=== PATIENT | female | born 2000 | race Caucasian/White ===

== ENCOUNTER 2019-07-14 22:47 | Inpatient (IN) | payer SELFPAY ==
[2019-07-14 23:18] LABS: APPEARANCE,URINE CLEAR; BILIRUBIN,URINE NEGATIVE (NEGATIVE); COLOR,URINE YELLOW; GLUCOSE, URINE NEGATIVE (NEGATIVE); KETONES,URINE NEGATIVE (NEGATIVE); LEUKOCYTE ESTERASE,URINE NEGATIVE (NEGATIVE); NITRITE,URINE NEGATIVE (NEGATIVE); PROTEIN,URINE NEGATIVE (NEGATIVE); URINE SPECIFIC GRAVITY 1.014; UROBILINOGEN,URINE NEGATIVE mg/dL (<2.0)
[2019-07-14 23:32] LABS: URINE AMPHETAMINES SCREEN NEGATIVE; URINE BARBITURATES SCREEN NEGATIVE; URINE BENZODIAZEPINES SCREEN NEGATIVE; URINE COCAINE SCREEN NEGATIVE; URINE METHADONE SCREEN NEGATIVE; URINE PHENCYCLIDINE SCREEN NEGATIVE
[2019-07-14 23:52] LABS: URINE MARIJUANA (THC) SCREEN UNCONFIRMED POSITIVE
[2019-07-15] MEDS ORDERED: PENICILLIN G-K 5 MILLION UNIT VIAL ONE ×3 (00:37→09:18)
[2019-07-15] MEDS ORDERED: RINGERS SOLUTION,LACTATED 1,000 ML IV PRN (01:08)
[2019-07-15] MEDS ORDERED: PENICILLIN G POTASSIUM 5,000,000 UNIT in DEXTROSE 5%-WATER 100 ML IV ONE (01:08)
[2019-07-15] MEDS ORDERED: NALBUPHINE HCL INJ 10 MG/1 ML AMPULE INJ ONE (01:09)
[2019-07-15] MEDS ORDERED: NALBUPHINE HCL INJ 10 MG/1 ML AMPULE ONE (01:21)
[2019-07-15 02:23] LABS: ABSOLUTE LYMPHOCYTES (AUTO) 0.7 10^3/uL (0.5-4.7); ABSOLUTE MONOCYTES (AUTO) 0.5 10^3/uL (0.1-1.4); ABSOLUTE NEUT (AUTO) 8.4 10^3/uL (1.7-8.2); BASOPHILS % (AUTO) 0.2 % (0-2); HEMATOCRIT 32.9 % (36.0-47.0); HEMOGLOBIN 10.6 g/dL (12.0-15.5); LYMPHOCYTES % (AUTO) 7.5 % (13-45); MEAN CORPUSCULAR HEMOGLOBIN 24.5 pg (27.0-33.4); MEAN CORPUSCULAR HGB CONC 32.2 g/dL (32.0-36.0); MEAN CORPUSCULAR VOLUME 76 fl (80-97); PLATELET COUNT 264 10^3/uL (150-450); RED BLOOD COUNT 4.31 10^6/uL (3.72-5.28); RED CELL DISTRIBUTION WIDTH 24.3 % (11.5-14.0); SEGMENTED NEUTROPHILS % (AUTO) 87.3 % (42-78); TOTAL CELLS COUNTED % (AUTO) 100 %; WHITE BLOOD COUNT 9.6 10^3/uL (4.0-10.5)
[2019-07-15 02:39] LABS: HYPOCHROMASIA SLIGHT; POLYCHROMASIA SLIGHT; TOXIC GRANULATION SLIGHT
[2019-07-15 02:40] LABS: ANISOCYTOSIS 3+; OVALOCYTES SLIGHT; PLATELET COMMENT ADEQUATE; POIKILOCYTOSIS SLIGHT; SCHISTOCYTES SLIGHT; SPHEROCYTES SLIGHT; TEAR DROP CELLS SLIGHT
[2019-07-15] MEDS ORDERED: LIDOCAINE 1% INJ-PF (10 MG/ML) 30 ML SDV ONE (04:04)
[2019-07-15] MEDS ORDERED: MISOPROSTOL 0.2 MG TABLET ONE (04:04)
[2019-07-15] MEDS ORDERED: OXYTOCIN/NORMAL SALINE 20 UNIT/1,000 ML RTUINJ ONE (04:04)
[2019-07-15] MEDS ORDERED: OXYTOCIN 10 UNIT/ML VIAL ONE (04:04)
[2019-07-15] MEDS ORDERED: FENTANYL/BUPIVACAINE/NS/PF 300 MCG/150 ML RTUINJ EPI ONE (04:05)
[2019-07-15] MEDS ORDERED: EPHEDRINE SULFATE INJ 50 MG/1 ML AMPULE ONE (04:05)
[2019-07-15] MEDS ORDERED: BUPIVACAINE HCL 0.25 % INJ/PF (2.5 MG/1 ML) 30 ML VIAL ONE (04:05)
[2019-07-15] MEDS ORDERED: FENTANYL CITRATE INJ/PF 100 MCG/2 ML AMPUL ONE (04:06)
[2019-07-15] MEDS: PENICILLIN G POTASSIUM 2,500,000 UNIT in DEXTROSE 5%-WATER 50 ML IV SCH ×2 (05:07→09:25)
--- NOTE | 2019-07-15 06:42 | Admission Physical ---
Datetime Report Generated by CPN: 07/15/2019 06:42 CURRENT ADMISSION Chief Complaint: Uterine Contractions Admit Impression : Term, Intrauterine ; Active Labor Admit Plan: Admit to Unit; Initiate Labor Protocol ALLERGIES Medication Allergies: Yes Medication Allergies: guaifenesin (07/14/2019); phenylephrine (07/14/2019); dextromethorphan (07/14/2019) Latex: No Latex Allergies OBSTETRICAL HISTORY EDC: 07/18/2019 00:00 : 1 Para: 0 Term: 0 : 0 SAB: 0 IAB: 0 Ectopic: 0 Livin Cesareans: 0 VBACs: 0 Multiple Births: 0 Current Procedures: Ultrasound; NST Obstetrical History Comments: G1- current SEE RECORDS Alcohol: No Marijuana : No Cocaine: No Other Illicit Drugs: No Cigarettes: Current Everyday Smoker. [id number] MEDICAL HISTORY Medical History Comments: anemia, spina bifida occulta INFECTIOUS HISTORY Genital Herpes: Yes Infectious History Comments: HSV- reports last outbreak in october PHYSICAL EXAM General: Normal HEENT: Normal Neurologic: Normal Thyroid: Normal Heart: Normal Lungs: Normal Breast: Normal Back: Normal Abdomen: Normal Genitourinary Exam: Normal Extremities: Normal DTRs: Normal Pelvic Type: Adequate Vital Signs: Reviewed VAGINAL EXAM Dilatation: 8 Effacement: 90 Station: -2 Contraction Comments: Contractions Q 3-4 minutes MEMBRANES Pooling: Negative Membranes: Intact FETUS A EGA: 39.4 Monitoring: External US FHR- Baseline: 140 Variability: Moderate 6-25bpm Accelerations: 10X10 Decelerations: None FHR Category: Category I Presentation: Vertex Admit Comment: G1 at 39.4 wks EGA in active labor -Admit to LDR -NPO and IVFs -GBS unknown-PCN ordered -Hx HSV-no lesions on valtrex -Desires epidural when needed -Anticipate PLANS FOR LABOR AND DELIVERY Labor and Delivery: None Pain Management: Medications Feeding Preference: Breast Benefit of Breast Feed Discussed: Yes INFORMED CONSENT Informed Consent Obtained: Vaginal Delivery; Section Delivery; Vacuum/Forceps Assist; Risks, Benefits and Alternatives Discussed Signature: with User ID: [email or web address] : with User ID: [email or web address]
[2019-07-15] MEDS ORDERED: DIBUCAINE 1% OINTMENT 56 GM TP PRN (11:39)
[2019-07-15] MEDS ORDERED: PROMETHAZINE HCL 25 MG TABLET PO PRN (11:39)
[2019-07-15] MEDS ORDERED: MAGNESIUM HYDROXIDE SUSP 30 ML UDCUP PO PRN (11:39)
[2019-07-15] MEDS ORDERED: OXYTOCIN/NORMAL SALINE 20 UNIT/1,000 ML RTUINJ IV PRN (11:39)
[2019-07-15] MEDS ORDERED: MEASLES,MUMPS&RUBELLA VACC/PF 0.5 ML VIAL SUBCUT PRN (11:39)
[2019-07-15] MEDS ORDERED: GLYCERIN/WITCH HAZEL LEAF 1 EACH MED..WIPE TP PRN (11:39)
[2019-07-15] MEDS ORDERED: NA PHOS,M-B/NA PHOS,DI-BA (ADULT) 133 ML ENEMA PR PRN (11:39)
[2019-07-15] MEDS ORDERED: PSEUDOEPHEDRINE HCL 30 MG TABLET PO PRN (11:39)
[2019-07-15] MEDS ORDERED: DIPHENHYDRAMINE HCL 25 MG CAPSULE PO PRN (11:39)
[2019-07-15] MEDS ORDERED: PROMETHAZINE HCL 25 MG SUPP.RECT PR PRN (11:39)
[2019-07-15] MEDS ORDERED: PROMETHAZINE HCL INJ 25 MG/1 ML VIAL IV PRN (11:39)
[2019-07-15] MEDS ORDERED: ACETAMINOPHEN 325 MG TABLET PO PRN (11:39)
[2019-07-15] MEDS ORDERED: DIPH/PERTUSS(ACELL)/TETANUS VAC/PF 0.5 ML SYR (>=10YO) IM PRN (11:39)
[2019-07-15] MEDS ORDERED: BENZOCAINE/MENTHOL AEROSOL SPRAY 56 ML TOP PRN (11:39)
--- NOTE | 2019-07-15 12:27 | Warning Signs in Babies ---
VOD Warning Signs Datetime Report Generated by [facility]: 07/15/2019 12:27 VOD#608 -Warning Signs in Babies: Needs to be viewed. (07/14/2019 22:59:Gloria Henderson RN)
[2019-07-15] MEDS ORDERED: IBUPROFEN 800 MG TABLET ONE (12:32)
[2019-07-15] MEDS: IBUPROFEN 800 MG TABLET PO SCH ×3 (12:37→22:00)
--- NOTE | 2019-07-15 12:45 | Delivery Summary ---
Del Sum A-C Datetime Report Generated by CPN: 07/15/2019 12:45 DELIVERY PERSONNEL DELIVERY PERSONNEL: [id number] Delivery Doctor:: Nazanin Malone MD Nurse Mold Stripper Certified:: Jackie Jean CNM Labor and Delivery Nurse:: Gloria Henderson RNhealth professor Nurse:: Dulce Diane RN Nursery Nurse:: Karina Bakrer RN Nursery Nurse:: Marian Morejon RN Mercerizer Machine Operator/ASTRONOMY DEPARTMENT CHAIR: Omayra Henderson CNA II Additional Personnel: : Amberly Lowe RNC MATERNAL INFORMATION Delivery Anesthesia: Epidural Medications After Delivery: Pitocin Bolus-Please Comment Meds After Delivery Comment: Pitocin 20 units in 1000 ml NSS open for bolus after delivery of placenta Delivery QBL Comment: 401 Maternal Complications: None Provider Comments: pt with perineal pressure and found to be c/c/1 with bbow began pushing and SROM with large amount of clear fluid. Pt. continued pushing and with much coaching and position changes went on to deliver a viable baby boy. Nursery and Dr. Chiu in room for delivery. Baby placed on maternal abdomen, vigrous respiratory effort and cry with tactile stimuation. Cord allowed to stop pulsating then clamped x2 and cut by FOB (3vc noted). Placenta delivered spontaneously intact, moderate bleeding and red josue used to empty bladder. Fundus firm and minimal bleeding, lacerations as stated and hemostatic on repair. Mother and baby continue skin to skin and bonding at this time. LABOR SUMMARY EDC: 07/18/2019 00:00 No. Babies in Womb: 1 Attempted: No Labor Anesthesia: Intrathecal LABOR INFORMATION Reason for Induction: Not Applicable Onset of Labor: 07/14/2019 20:00 Complete Dilatation: 07/15/2019 09:10 Oxytocin: N/A Group B Beta Strep: UNKNOWN Antibiotics # of Doses: 3 Antibiotics Time of Last Dose: 924 Name of Antibiotic Given: PENICILLIN Steroids Given: None Reason Steroids Not Administered: Not Applicable Other Reason Not Administered: N/A MEMBRANES Membranes Rupture Method: Spontaneous Rupture of Membranes: 07/15/2019 09:26 Length of Rupture (hr): 1.25 Amniotic Fluid Color: Clear Amniotic Fluid Amount: Large Amniotic Fluid Odor: None STAGES OF LABOR Stage 1 hr: 13 Stage 1 min: 10 Stage 2 hr: 1 Stage 2 min: 31 Stage 3 hr: 0 Stage 3 min: 8 Total Time in Labor hr: 14 Total Time in Labor min: 49 VAGINAL DELIVERY Episiotomy: None Laceration #1: Perineal Laceration Extension #1: N/A Other Laceration: bilateral labial abrasions Laceration Repair: Yes Laceration Repair Note: left labial laceration repaired in the usual fashion and hemostatic Sponge Count Correct: Yes Sharps Count Correct: Yes CSECTION DELIVERY Primary Indication: N/A Labor: No Labor BABY A INFORMATION Infant Delivery Date/Time: 07/15/2019 10:41 Method of Delivery: Vaginal Born in Route : No : N/A Forceps: N/A Vacuum Extraction: N/A Shoulder Dystocia : No PRESENTATION/POSITION BABY A Presentation: Cephalic Cephalic Presentation: Vertex Vertex Position: Right Occipital Anterior Breech Presentation: N/A PLACENTA INFORMATION BABY A Placenta Delivery Time : 07/15/2019 10:49 Placenta Method of Delivery: Spontaneous Placenta Status: Delivered SCORES BABY A Heart Rate 1 min: >100 bpm Resp Effort 1 min: Good Cry Reflex Irritability 1 min: Cough or Sneeze or Pulls Away Muscle Tone 1 min: Some Flexion of Extremities Color 1 min: Blue/Pale Resuscitation Effort 1 min: Tactile Stimulation SCORE 1 MIN: 7 Heart Rate 5 min: >100 bpm Resp Effort 5 min: Good Cry Reflex Irritability 5 min: Cough or Sneeze or Pulls Away Muscle Tone 5 min: Active Motion Color 5 min: Body [place], Extremities Blue Resuscitation Effort 5 min: N/A SCORE 5 MIN: 9 Resuscitation Effort 10 min: N/A INFANT INFORMATION BABY A Gestational Age at Delivery: 39.4 Gestational Status: Full Term- 39- 40.6 Weeks Infant Outcome : Liveborn Infant Condition : Stable Infant Sex: Male IDENTIFICATION BABY A Infant Verification Date/Time: 07/15/2019 11:07 ID Band Number: [id number] Mother's Name Verified: Yes Infant RN Verifying Infant: Imtiaz Henderson RN Additional Verifying Personnel: VERNA Berger WEIGHT/LENGTH BABY A Birthweight (gm): 4745 Weight (lb): 10 Infant Weight (oz): 7 Infant Length (in): 21.50 Length (cm): 54.61 CORD INFORMATION BABY A No. Cord Vessels: 3 Nuchal Cord : N/A Cord Blood Taken: Yes-For Eval (Mom's Blood Type - or O+) Infant Suction: None ASSESSMENT BABY A Skin to Skin: Yes Skin to Skin Time (min): 90 BABY B INFORMATION : N/A SIGNATURES Assignment: Nazanin Malone MD Signature: with User ID: Marii : with User ID: Marii
[2019-07-15] MEDS: DOCUSATE SODIUM 100 MG CAPSULE PO SCH (17:26)
[2019-07-15] MEDS: FERROUS SULFATE 325 MG TABLET PO SCH (17:26)
[2019-07-15] MEDS: FAMOTIDINE 20 MG TABLET PO SCH (22:00)
[2019-07-16] MEDS: IBUPROFEN 800 MG TABLET PO SCH ×3 (06:00→23:23)
[2019-07-16 06:37] LABS: HEMATOCRIT 28.3 % (36.0-47.0); HEMOGLOBIN 9.3 g/dL (12.0-15.5); MEAN CORPUSCULAR HGB CONC 32.7 g/dL (32.0-36.0); MEAN CORPUSCULAR VOLUME 76 fl (80-97); PLATELET COUNT 266 10^3/uL (150-450); RED BLOOD COUNT 3.71 10^6/uL (3.72-5.28); RED CELL DISTRIBUTION WIDTH 24.9 % (11.5-14.0); WHITE BLOOD COUNT 11.4 10^3/uL (4.0-10.5)
[2019-07-16] MEDS: SENNOSIDES/DOCUSATE 8.6-50 MG 1 EACH TABLET PO SCH (09:23)
[2019-07-16] MEDS: DOCUSATE SODIUM 100 MG CAPSULE PO SCH ×2 (09:23→17:11)
[2019-07-16] MEDS: FERROUS SULFATE 325 MG TABLET PO SCH ×2 (09:23→17:11)
[2019-07-16] MEDS: FAMOTIDINE 20 MG TABLET PO SCH ×2 (09:23→23:23)
[2019-07-16] MEDS: PRENATAL VITAMIN W DHA CAPSULE PO SCH (09:23)
--- NOTE | 2019-07-16 10:19 | PDOC PROGRESS REPORT ---
Subjective-OB Progress Note for:: 07/16/19 Physical Exam (OB) Vital Signs: Temp Pulse Resp BP Pulse Ox 97.9 F 77 18 99/56 L 100 07/16/19 07:53 07/16/19 07:53 07/16/19 07:53 07/16/19 07:53 07/16/19 07:53 Intake & Output 07/15/19 07/16/19 07/17/19 06:59 06:59 06:59 Weight 89 kg - PIH/Pre-Eclampsia Clonus: Negative Headache: Absent Epigastric Pain: No Visual Changes: No - Lochia Lochia Amount: Scant < 10 ml Lochia Color: Rubra/Red - Abdomen Description: Soft Hernia Present: No Bowel Sounds: Normoactive Flatus Presence: Present Stool: No Fundal Description: Firm Fundal Height: u/u - u/2 Objective-Diagnostic Laboratory: 07/16/19 06:14 07/16/19 06:14 WBC 11.4 H RBC 3.71 L Hgb 9.3 L Hct 28.3 L MCV 76 L MCH 25.0 L MCHC 32.7 RDW 24.9 H Plt Count 266
[2019-07-17] MEDS: IBUPROFEN 800 MG TABLET PO SCH ×2 (05:57→14:17)
[2019-07-17 08:30] VITALS: BP 112/52
[2019-07-17] MEDS: FAMOTIDINE 20 MG TABLET PO SCH (10:00)
[2019-07-17] MEDS: PRENATAL VITAMIN W DHA CAPSULE PO SCH (10:01)
[2019-07-17] MEDS: SENNOSIDES/DOCUSATE 8.6-50 MG 1 EACH TABLET PO SCH (10:01)
[2019-07-17] MEDS: DOCUSATE SODIUM 100 MG CAPSULE PO SCH (10:01)
[2019-07-17] MEDS: FERROUS SULFATE 325 MG TABLET PO SCH (10:01)
--- NOTE | 2019-07-17 11:06 | PDOC PROGRESS REPORT ---
Subjective-OB Progress Note for:: 07/17/19 Subjective: Doing well, ready to go home, , desires circumcision Physical Exam (OB) Vital Signs: Temp Pulse Resp BP Pulse Ox 97.9 F 83 14 112/52 L 99 07/17/19 07:45 07/17/19 07:45 07/17/19 07:45 07/17/19 07:45 07/17/19 07:45 - PIH/Pre-Eclampsia Clonus: Negative Headache: Absent Epigastric Pain: No Visual Changes: No - Lochia Lochia Amount: Scant < 10 ml Lochia Color: Serosa/Brown - Abdomen Description: Soft, Round Hernia Present: No Fundal Description: Firm, Midline Fundal Height: u/u - u/2 Objective-Diagnostic Laboratory: 07/16/19 06:14 07/15/19 01:00 Vaginal/Anorectal Group B Streptococcus Culture - Final NO GROUP B STREPTOCOCCUS RECOVERED Assessment and Plan(PN) - Assessment and Plan (1) Anemia affecting in third trimester Is this a current diagnosis for this admission?: Yes (2) Obstetric labial laceration, delivered, current hospitalization Is this a current diagnosis for this admission?: Yes (3) Vaginal delivery Is this a current diagnosis for this admission?: Yes - Time Spent with Patient Time with patient: Less than 15 minutes Medications reviewed and adjusted accordingly: Yes - Disposition Anticipated Discharge: Home Within: within 24 hours
--- NOTE | 2019-07-17 11:13 | PDOC DISCHARGE SUMMARY ---
Impression - Admit/DC Date/PCP Admission Date/Primary Care Provider: 07/15/19 01:14 Discharge Date: 07/17/19 - Discharge Diagnosis (1) Anemia affecting in third trimester Is this a current diagnosis for this admission?: Yes (2) Obstetric labial laceration, delivered, current hospitalization Is this a current diagnosis for this admission?: Yes (3) Vaginal delivery Is this a current diagnosis for this admission?: Yes - Additional Information Resuscitation Status: Full Code Discharge Diet: As Tolerated, Regular Discharge Activity: Activity As Tolerated, No Lifting Over 10 Pounds, No Lifting/Push/Pulling, Pelvic Rest Referrals: MANDEEP MORAN MD [ACTIVE STAFF] - ([facility] 4 weeks) HPI Gestational Age: 39.4 Reason(s) for Admission: Onset of Labor Admission Note: Unknown GBS, treated Procedures: NST, Ultrasound Intrapartum Procedure(s): Spontaneous Vaginal Delivery Complication(s): Laceration-Perineal Laceration-Degree: 1st - left labial lac repaired, male. 10-7 Hospital Course Hospital Course: routine Results Laboratory Results: WBC 11.4 10^3/uL (4.0-10.5) H 07/16/19 06:14 RBC 3.71 10^6/uL (3.72-5.28) L 07/16/19 06:14 Hgb 9.3 g/dL (12.0-15.5) L 07/16/19 06:14 Hct 28.3 % (36.0-47.0) L 07/16/19 06:14 MCV 76 fl (80-97) L 07/16/19 06:14 MCH 25.0 pg (27.0-33.4) L 07/16/19 06:14 MCHC 32.7 g/dL (32.0-36.0) 07/16/19 06:14 RDW 24.9 % (11.5-14.0) H 07/16/19 06:14 Plt Count 266 10^3/uL (150-450) 07/16/19 06:14 Lymph % (Auto) 7.5 % (13-45) L 07/15/19 01:29 [place] % (Auto) 5.0 % (3-13) 07/15/19 01:29 Eos % (Auto) 0.0 % (0-6) 07/15/19 01:29 Baso % (Auto) 0.2 % (0-2) 07/15/19 01:29 Absolute Neuts (auto) 8.4 10^3/uL (1.7-8.2) H 07/15/19 01:29 Absolute Lymphs (auto) 0.7 10^3/uL (0.5-4.7) 07/15/19 01:29 Absolute Monos (auto) 0.5 10^3/uL (0.1-1.4) 07/15/19 01:29 Absolute Eos (auto) 0.0 10^3/uL (0.0-0.6) 07/15/19 01:29 Absolute Basos (auto) 0.0 10^3/uL (0.0-0.2) 07/15/19 01:29 Seg Neutrophils % 87.3 % (42-78) H 07/15/19 01:29 Toxic Granulation SLIGHT 07/15/19 01:29 Platelet Comment ADEQUATE 07/15/19 01:29 Polychromasia SLIGHT 07/15/19 01:29 Hypochromasia SLIGHT 07/15/19 01:29 Poikilocytosis SLIGHT 07/15/19 01:29 Anisocytosis 3+ 07/15/19 01:29 Microcytosis SLIGHT 07/15/19 01:29 Spherocytes SLIGHT 07/15/19 01:29 Tear Drop Cells SLIGHT 07/15/19 01:29 Ovalocytes SLIGHT 07/15/19 01:29 Schistocytes SLIGHT 07/15/19 01:29 Urine Color YELLOW 07/14/19 23:03 Urine Appearance CLEAR 07/14/19 23:03 Urine pH 7.0 (5.0-9.0) 07/14/19 23:03 Ur Specific [place] 1.014 07/14/19 23:03 Urine Protein NEGATIVE mg/dL (NEGATIVE) 07/14/19 23:03 Urine Glucose (UA) NEGATIVE mg/dL (NEGATIVE) 07/14/19 23:03 Urine Ketones NEGATIVE mg/dL (NEGATIVE) 07/14/19 23:03 Urine Blood NEGATIVE (NEGATIVE) 07/14/19 23:03 Urine Nitrite NEGATIVE (NEGATIVE) 07/14/19 23:03 Urine Bilirubin NEGATIVE (NEGATIVE) 07/14/19 23:03 Urine Urobilinogen NEGATIVE mg/dL (<2.0) 07/14/19 23:03 Ur Leukocyte Esterase NEGATIVE (NEGATIVE) 07/14/19 23:03 Urine Ascorbic Acid 40 (NEGATIVE) H 07/14/19 23:03 Urine Opiates Screen NEGATIVE 07/14/19 23:03 Urine Methadone Screen NEGATIVE 07/14/19 23:03 Ur Barbiturates Screen NEGATIVE 07/14/19 23:03 Ur Phencyclidine Scrn NEGATIVE 07/14/19 23:03 Ur Amphetamines Screen NEGATIVE 07/14/19 23:03 U Benzodiazepines Scrn NEGATIVE 07/14/19 23:03 Urine Cocaine Screen NEGATIVE 07/14/19 23:03 U Marijuana (THC) Screen UNCONFIRMED POSITIVE 07/14/19 23:03 RPR NONREACTIVE (NONREACTIVE) 07/15/19 01:29 Blood Type O POSITIVE 07/15/19 01:29 Antibody Screen NEGATIVE 07/15/19 01:29 Plan Health Concerns: routine Plan of Treatment: baby home with mama, no complications Goals: routine Time Spent: Less than 30 Minutes
== END 2019-07-17 15:55 | disposition home or self-care (01) | DRG 807 ==
LOC: LC 22:47 → LR 07-15 01:14 → 2S 07-15 14:00
PROVIDERS: ADMIT Obstetrics & Gynecology; ATTEND Obstetrics & Gynecology
PROC: 10E0XZZ Delivery of Products of Conception, External Approach (ICD-10-PCS; principal; 2019-07-15)
PROC: 0HQ9XZZ Repair Perineum Skin, External Approach (ICD-10-PCS; 2019-07-15)
PROC: 3E0234Z Introduction of Serum, Toxoid and Vaccine into Muscle, Percutaneous Approach (ICD-10-PCS; 2019-07-17)
DX: O75.89 Other specified complications of labor and delivery (principal); Z37.0 Single live birth; Q76.0 Spina bifida occulta; O99.02 Anemia complicating childbirth; D64.9 Anemia, unspecified; O70.0 First degree perineal laceration during delivery; O99.334 Smoking (tobacco) complicating childbirth; F17.210 Nicotine dependence, cigarettes, uncomplicated; Z3A.39 39 weeks gestation of pregnancy; Z23 Encounter for immunization
CPT/HCPCS: 36415; 80307; 80349; 81005; 85025; 85027; 86592; 86695; 86850; 86900; 86901; 87081; 87529; 88307; 90707; 94760; G0480; J2300; J2540; J2590; J3010; J3490; J7060